=== PATIENT | male | born 1990 | race Caucasian/White ===

== ENCOUNTER 2023-09-13 17:23 | Emergency (ER) | payer OTHER, SELFPAY ==
[2023-09-13 18:39] VITALS: BP 114/49; PULSE 78; RESP 18; TEMP 37.2; O2SAT 100; BMI 24.6
--- NOTE | 2023-09-13 18:40 | ED_ITS ---
HPI - Psych General Chief Complaint: ETOH/Substance Use Stated Complaint: detox Time Seen by Provider: 09/13/23 22:40 Source: patient, RN notes reviewed and old records reviewed Mode of arrival: ambulatory Limitations: no limitations History of Present Illness HPI Narrative: 32-year-old male presents for evaluation of ?I am looking for detox. ? Patient reports that he uses heroin daily. He uses ?a couple of bundles a day. ? Patient endorses smoking the opiates and he does not inject He last use this morning. The patient reports he is also on methadone 70 mg daily and his last dose was Sunday morning Patient denies any suicidal ideation. He reports he spent all day today calling ?different detox facilities and they had no beds so they told me to come to the ER. ? He has no other complaints or concerns at this time except that he is hungry Related Data Home Medications Medication Instructions Recorded Confirmed No Known Home Meds 09/14/23 09/14/23 Allergies Allergy/AdvReac Type Severity Reaction Status Date / Time lactose AdvReac Diarrhea Verified 09/13/23 18:39 Review of Systems 2 Constitutional: Constitutional: Denies body ache(s), Denies chills and Denies fever(s) ENT: Denies vertigo Cardiovascular: Cardiovascular: Denies chest pain, Denies rapid heart rate and Denies dyspnea Respiratory: Respiratory: Denies cough and Denies dyspnea Gastrointestinal: Gastrointestinal: Denies abdominal pain, Denies nausea and Denies vomiting Musculoskeletal: Musculoskeletal: Denies back pain Integumentary/Breasts: Skin/Breast: Denies rash Neurologic: Denies vertigo PMFSH Social History Social History Smoked in Last 30 Days: Yes Use of substances other than those prescribed or required for medical reasons: Yes Substance Use Type: Heroin Advance Directives: No Advance Directives Information Provided: Yes Physical Exam 2 Vital Signs: Vital Signs: Last Vital Signs Temp 97.9 F 09/13/23 22:49 Pulse 81 09/14/23 06:07 Resp 20 09/14/23 06:07 BP 119/75 09/14/23 06:07 Pulse Ox 98 09/14/23 06:07 O2 Del Method Room Air 09/14/23 06:07 BMI result Body Mass Index 24.6 Const: General: healthy appearing, comfortable, no acute distress, alert and awake Nutritional Appearance: well nourished Orientation/consciousness: p atient oriented x3 HEENT: Head: Yes normocephalic and Yes atraumatic Throat: Yes posterior oropharynx normal Eyes: Eyelids: Yes eyelids normal Conjunctivae: conjunctivae normal S clerae: sclerae normal Corneas: corneas normal Pupils: Equal, round and reactive pupils present EOM: EOMs intact bilaterally Neck: Neck: Yes full ROM Resp: Effort & Inspection: normal respiratory effort, able to speak in complete sentences and not labored Skin: General skin exam: no rashes or lesions noted and elasticity normal Neuro: General: patient oriented x3 Cranial nerves: Yes Equal, round and reactive pupils present and Yes Bilaterally intact EOM present Cognition (Neuro): normal cognition Course Course Course Narrative: This is a rapid medical exam. deferred additional HPI, ROS, PE to primary provider. 32 yo male here seeking detox from opiates. NO SI. No physical complaints. Will obtain [facility] VSS Reevaluation(s) Reevaluation #1: Patient placed in a position observation status pending addiction medicine consult Time: 01:03 Reevaluation #2: This patient was seen this morning by 1 of our recovery counselors. The recovery counselor had made arrangements for the patient to go to [facility] in [place]. The patient is hoping to detox from opioids. The patient does not wish to go to [facility]. The patient has been treated at [facility] in the past and would prefer to try to get into that facility rather than [facility]. The patient is comfortable being discharged to contact [facility] from home. The patient denies any sense of self harm or self endangerment. Time: 10:13 Medications Administered Discontinued Medications Generic Name Dose Route Start Last Admin Trade Name Rangel PRN Reason Stop Dose Admin Methadone HCl 20 mg 09/14/23 02:15 09/14/23 05:56 Methadone Hcl 20 Mg/2 Ml Oral.Conc PO 09/14/23 02:16 20 mg ONCE ONE Administration Medical Decision Making Medical Decision Making MDM Narrative: 32-year-old male presents for evaluation of detox. He reports that he is seeking detox from opiates tenderness been unable to locate a bed on his own. Plan for addiction medicine consult in the morning. The patient is requesting methadone dosing. We are unable to verify his full 70 mg dose. He will be given a 1 time dose of 20 mg and plan to verify methadone the morning. Differential Diagnosis Differential Diagnoses: The differential diagnosis associated with the presentation includes Substance abuse Polysubstance abuse Opiate abuse Heroin overdose Lab Data 09/14/23 00:31 09/14/23 00:31 Labs: Lab Results 09/13/23 09/14/23 Range/Units 19:29 00:31 WBC 5.0 (4.8-10.8) X10*3/uL RBC 3.87 L (4.60-5.80) X10*6/uL Hgb 11.7 L (14.0-18.0) g/dl Hct 36.4 L (42.0-52.0) % MCV 94.1 (80.0-98.0) fL MCH 30.2 (27.0-33.0) pg MCHC 32.1 (31.0-36.0) g/dl RDW 12.3 (11.0-16.0) % Plt Count 254 (160-400) X10*3/uL MPV 8.7 L (9.4-12.4) fL Immature Gran % (Auto) 0.2 (0.0-0.4) % Neut % (Auto) 46.7 (45-73) % Lymph % (Auto) 43.8 H (20-40) % Crosby % (Auto) 7.7 (2-11) % Eos % (Auto) 1.2 (0-4) % Baso % (Auto) 0.4 (0-2) % Lymph # (Auto) 2.2 (1.2-4.9) X10*3/uL Crosby # (Auto) 0.4 (0.1-1.2) X10*3/uL Eos # (Auto) 0.1 (0.0-0.4) X10*3/uL Baso # (Auto) 0.0 (0.0-0.2) X10*3/uL Abs Immat Gran (auto) 0.01 (0.00-0.03) X10*3/uL Absolute Neuts (auto) 2.3 (2.0-8.3) x10*3/uL Absolute Nucleated RBC 0.000 (0.0-0.012) X10*3/uL Nucleated RBC % (auto) 0.0 (0.0-0.2) /100WBC Sodium 140 (135-145) mmol/L Potassium 4.0 (3.3-5.1) mmol/L Chloride 106 (96-108) mmol/L Carbon Dioxide 26 (22-29) mmol/L Anion Gap 12 (12-20) BUN 10 (9-16) mg/dL Creatinine 0.77 (0.5-1.4) mg/dL Estim Creat Clear Calc 133.2 Estimated GFR > 60 Random Glucose 133 H (60-115) mg/dL Calcium 8.7 (8.4-10.2) mg/dL Total Bilirubin 0.1 (0.0-1.0) mg/dL AST 12 (5-37) U/L ALT 9 (0-40) U/L Alkaline Phosphatase 59 (39-117) U/L Total Protein 6.4 L (6.5-8.0) g/dL Albumin 3.9 (3.5-5.0) g/dL Lipase 17 (8-78) U/L Urine Opiates Screen POSITIVE H (Not Detect) Urine Fentanyl Screen POSITIVE H (Not Detect) Ur Barbiturates Screen Not Detected (Not Detect) Ur Phencyclidine Scrn Not Detected (Not Detect) Ur Amphetamines Screen Not Detected (Not Detect) U Benzodiazepines Scrn Not Detected (Not Detect) Urine Cocaine Screen POSITIVE H (Not Detect) U Marijuana (THC) Screen POSITIVE H (Not Detect) Ethyl Alcohol < 10 mg/dL Discharge Plan Discharge Clinical Impression: Opiate abuse, continuous Patient Disposition: Home, Self-Care Additional Instructions: Please continued to try to contact [facility] from home to see if you are able to get into their facility for treatment. If at any point you wish to speak to somebody confidentially for advice about your condition you may contact the [facility] crisis hotline at [phone]. Please try also to follow up with your regular medical doctor. If significantly worse at any time please return to the emergency department. Prescriptions: No Action No Known Home Meds Referrals: [facility] [Provider Group]
[2023-09-13 19:46] LABS: Amphetamine Screen Urine Not Detected (Not Detect); Barbiturates, Urine Not Detected (Not Detect); Benzodiazepines Screen Urine Not Detected (Not Detect); Cannabinoid Screen Urine POSITIVE (Not Detect); Cocaine Screen Urine POSITIVE (Not Detect); Fentanyl, urine POSITIVE (Not Detect); Opiate Screen Urine POSITIVE (Not Detect); Phencyclidine Screen Urine Not Detected (Not Detect)
--- NOTE | 2023-09-13 22:25 | PC.NURSE ---
pt changed over by security belongings secured in pod locker awaiting eval by ed provider. pt seeking detox reports last used heroin this am.
--- NOTE | 2023-09-13 22:26 | MHC.EDTECH ---
KNIFE IN SECURITY OFFICE, REMAINDER OF BELONGINGS IN POD LOCKER 6
[2023-09-13 22:49] VITALS: BP 123/74; PULSE 74; RESP 16; TEMP 36.6; O2SAT 98
[2023-09-13 22:50] VITALS: PULSE 76
[2023-09-14 00:35] LABS: MANUAL DIFF FLAG NO
[2023-09-14 00:39] VITALS: BP 128/56; PULSE 76; RESP 16; O2SAT 99
[2023-09-14 00:41] LABS: Basophils Percent Auto 0.4 % (0-2); Eosinophils Absolute Auto 0.1 X10*3/uL (0.0-0.4); Eosinophils Percent Auto 1.2 % (0-4); Hematocrit 36.4 % (42.0-52.0); Hemoglobin 11.7 g/dl (14.0-18.0); Imm Gran Abs Auto 0.01 X10*3/uL (0.00-0.03); Imm Gran Pct Auto 0.2 % (0.0-0.4); Lymphocytes Absolute Auto 2.2 X10*3/uL (1.2-4.9); Lymphocytes Percent Auto 43.8 % (20-40); Mean Corpuscular HGB Conc 32.1 g/dl (31.0-36.0); Mean Corpuscular Hemoglobin 30.2 pg (27.0-33.0); Mean Corpuscular Volume 94.1 fL (80.0-98.0); Mean Platelet Volume 8.7 fL (9.4-12.4); Monocytes Absolute Auto 0.4 X10*3/uL (0.1-1.2); Monocytes Percent Auto 7.7 % (2-11); Neutrophils Absolute Auto 2.3 x10*3/uL (2.0-8.3); Neutrophils Percent Auto 46.7 % (45-73); Platelet Count 254 X10*3/uL (160-400); Red Blood Count 3.87 X10*6/uL (4.60-5.80); Red Cell Distribution Width 12.3 % (11.0-16.0)
[2023-09-14 01:21] LABS: Alanine Aminotransferase 9 U/L (0-40); Albumin Level 3.9 g/dL (3.5-5.0); Alkaline Phosphatase 59 U/L (39-117); Anion Gap 12 (12-20); Aspartate Amino Transferase 12 U/L (5-37); Bilirubin Total 0.1 mg/dL (0.0-1.0); Blood Urea Nitrogen 10 mg/dL (9-16); Calcium 8.7 mg/dL (8.4-10.2); Carbon Dioxide 26 mmol/L (22-29); Chloride 106 mmol/L (96-108); Creatinine Clr Calc Pharmacy 133.2; Estimated Glomerular Filt Rate > 60; Ethanol < 10 mg/dL; Glucose Random 133 mg/dL (60-115); Lipase 17 U/L (8-78); Sodium 140 mmol/L (135-145); Total Protein 6.4 g/dL (6.5-8.0)
--- NOTE | 2023-09-14 01:38 | PC.NURSE ---
po methadone remains unverified at this time.
[2023-09-14] MEDS: methADONE HCl 20 MG/2 ML ORAL.CONC PO (05:56)
[2023-09-14 06:07] VITALS: BP 119/75; PULSE 81; RESP 20; O2SAT 98
[2023-09-14 06:26] VITALS: PULSE 81
--- NOTE | 2023-09-14 06:26 | PC.NURSE ---
pt denies alcohol use. ciwa not done.
--- NOTE | 2023-09-14 07:24 | PC.NURSE ---
Patient just got transferred from main ED, patient is here for detox help, asymptomatic ETOH withdrawal at this time, BAL is negative, per report patient is currently not on any medication except for Methadone, pending verification from the clinic at this time, calm and quiet, ate breakfast, no distress observed/reported, will continue to monitor.
--- NOTE | 2023-09-14 07:27 | PC.NURSE ---
Care consult ordered/pending evaluation
--- NOTE | 2023-09-14 08:15 | MHC.RECOVRN ---
Pts referral sent to [facility].
--- NOTE | 2023-09-14 09:48 | MHC.RECOVRN ---
Pt accepted to [facility] for 11AM. Will be transported via [facility].
--- NOTE | 2023-09-14 10:07 | PC.NURSE ---
patient is awake and alert, calm and cooperative. skin pwd, resp even and non labored, speaking in full, clear sentences. patient aware of bed being available at [facility] but changed his mind and states he does not want to go there. patient states he wants to go home, physician aware.
--- NOTE | 2023-09-14 10:14 | MHC.RECOVRN ---
Pt declined bed at [facility]. Pt reports he only wants to go to [facility]. Per [facility], pts [facility] is a [facility] plan, facility only has a certain amount of [facility] beds. While waiting to check for bed availability, pt expressed desire to discharge and did not want to wait. Pt provided with [facility] contact information to follow up from community. Denies questions or concerns.
== END 2023-09-14 10:32 | disposition home or self-care (01) ==
PROVIDERS: Nurse Practitioner Family; Physician Assistant; Emergency Provider Internal Medicine
DX: F11.19 Opioid abuse with unspecified opioid-induced disorder (principal); F14.10 Cocaine abuse, uncomplicated; F12.10 Cannabis abuse, uncomplicated; Z79.899 Other long term (current) drug therapy
CPT/HCPCS: 36415; 80053; 80307; 83690; 85025; 99284